=== PATIENT | female | born 1950 | race Caucasian/White ===

== ENCOUNTER → 2023-12-21 | Outpatient (REF) | LOC: M LAB 09:36 | PROVIDERS: ATTEND Nurse Practitioner Adult Health | DX: Z00.00 Encounter for general adult medical examination without abnormal findings (principal) ==

== ENCOUNTER → 2024-01-11 | Outpatient (REF) | LOC: M EMP 12:01 | PROVIDERS: ATTEND Family Medicine | DX: Z11.52 Encounter for screening for COVID-19 (principal) ==